=== PATIENT | male | born 1990 | race Caucasian/White ===

== ENCOUNTER 2022-10-19 11:11 | Inpatient (IN) | payer BC ==
[2022-10-19] MEDS ORDERED: methylPREDNISolone SOD SUCCI 125 MG/2 ML VIAL IV STA (11:41)
[2022-10-19] MEDS ORDERED: MORPHINE SULFATE 2 MG/ML SYRINGE IVP STA (11:41)
[2022-10-19] MEDS ORDERED: KETOROLAC 15 MG/ML 1 ML VIAL IVP STA (11:41)
[2022-10-19] MEDS ORDERED: DEXAMETHASONE SOD PHOSPHATE 10 MG/ML 1 ML VIAL IVP STA (11:44)
[2022-10-19 12:16] LABS: Basophils % (A) 0 %; Eosinophils # (A) 0.1 k/uL (0-0.7); Eosinophils % (A) 1 %; HCT 40.7 % (39.0-53.0); HGB 13.6 gm/dL (13.0-17.5); Lymphocytes # (A) 1.1 k/uL (1.0-4.8); Lymphocytes % (A) 12 %; MCH 28.8 pg (25.0-35.0); MCHC 33.3 g/dL (31.0-37.0); MCV 86.6 fL (80.0-100.0); Mean Platelet Volume 7.2; Monocytes # (A) 0.8 k/uL (0-1.0); Monocytes % (A) 9 %; Neutrophils # (A) 6.8 k/uL (1.3-7.7); Neutrophils % (A) 76 %; Platelet Count 252 k/uL (150-450); RDW 12.3 % (11.5-15.5); WBC 8.9 k/uL (3.8-10.6)
[2022-10-19 12:29] LABS: ALT 28 U/L (4-49); AST 24 U/L (17-59); African American GFR (CKD) >90 (>60 ml/min/1.73 sqM); Albumin 4.3 g/dL (3.5-5.0); Alkaline Phosphatase 95 U/L (38-126); Anion Gap 7 mmol/L; Blood Urea Nitrogen 10 mg/dL (9-20); C Reactive Protein 5.5 mg/dL (<1.0); Calcium 8.4 mg/dL (8.4-10.2); Carbon Dioxide 27 mmol/L (22-30); Chloride 102 mmol/L (98-107); Glucose 102 mg/dL (74-99); Non-African American GFR(CKD) >90 (>60 ml/min/1.73 sqM); Potassium 4.1 mmol/L (3.5-5.1); Sodium 136 mmol/L (137-145); Total Bilirubin 1.3 mg/dL (0.2-1.3); Total Protein 7.5 g/dL (6.3-8.2)
--- NOTE | 2022-10-19 12:56 | CT ---
EXAMINATION TYPE: CT soft tissue neck w con CT DLP: 444.1 mGycm, Automated exposure control for dose reduction was used. DATE OF EXAM: 10/19/2022 12:41 PM COMPARISON: None. CLINICAL INDICATION:Male, 32 years old with history of Possible peritonsillar abscess, neck pain swel ling TECHNIQUE: Standard enhanced CT of the neck. Axial sections with coronal and sagittal reformats were obtained. Contrast used:100 mL of Isovue 300 with IV Contrast, Oral contrast used: none. FINDINGS: Brain: Visualized portions are grossly unremarkable. Orbits: Unremarkable Sinuses: Grossly unremarkable. Spaces of the neck: Phlegmonous change 2 the palatine tonsils bilaterally which are enlarged and in i mpinging on the airway. The left palatine tonsil appears asymmetrically increased in size. Dentition streak artifact limits evaluation. There is a low-attenuation area measuring 17 x 13 x 7 mm suggestin g early abscess formation. Musculoskeletal: No acute osseous pathology. Lymph nodes: Multiple nonenlarged lymph nodes are seen along both anterior chains of the neck. Vascular structures: Visualized major arteries are patent without evidence of aneurysm. A variant rig ht subclavian artery transversing posterior to the esophagus. Thoracic Inlet/airway: Airway is patent. The lung apices are clear. Soft tissues/Thyroid: Thyroid and remainder of the soft tissues are unremarkable. Other: none. IMPRESSION Topping tonsil enlargement with asymmetrically increased left palatine tonsil with early abscess for mation on the left.
[2022-10-19] MEDS ORDERED: CLINDAMYCIN 900 MG in DEXTROSE 5% IN WATER 50 ML IVPB STA ×2 (13:28)
[2022-10-19] MEDS ORDERED: cefTRIAXone IN SWFI 1,000 MG/10 ML SYRINGE IVP STA (13:30)
[2022-10-19] MEDS ORDERED: LIDOCAINE 1% INJ 10MG/ML (30 ML VIAL-PF) SQ ONE (13:47)
--- NOTE | 2022-10-19 14:01 | ED ---
ENT HPI - General Chief complaint: Skin/Abscess/Foreign Body Stated complaint: abscess Time Seen by Provider: 10/19/22 11:29 Source: patient, RN notes reviewed Mode of arrival: ambulatory Limitations: no limitations - History of Present Illness Initial comments: This is a 32-year-old male who presents to the emergency department for a sore throat. He should states that this is been present for approximately 3 weeks. He was initially put on a 1 week course of amoxicillin and had no improvement in symptoms. He was then put on a course of Augmentin and prednisone. He had minor improvement in symptoms, however they then returned and seemed to worsen. He was at urgent care earlier today for reevaluation, and they're concerned about a peritonsillar abscess, and sent him to the emergency department for further evaluation. He is having a lot of pain with swallowing and trying to open his mouth. He is not having any shortness of breath, however he feels like his airway is smaller than it usually is. Denies any fevers. He has never had a problem like this before. Denies any fevers, chills, cough, dyspnea, chest pain, palpitations, abdominal pain, nausea, vomiting, diarrhea, back pain, or headaches. MD complaint: sore throat Onset/Timin -: week(s) - Related Data Home Medications Medication Instructions Recorded Confirmed No Known Home Medications 10/19/22 10/19/22 Allergies Allergy/AdvReac Type Severity Reaction Status Date / Time No Known Allergies Allergy Verified 10/19/22 15:19 Review of Systems ROS Statement: Those systems with pertinent positive or pertinent negative responses have been documented in the HPI. ROS Other: All systems not noted in ROS Statement are negative. Past Medical History Past Medical History: Asthma History of Any Multi-Drug Resistant Organisms: None Reported Past Surgical History: Adenoidectomy Past Psychological History: No Psychological Hx Reported Smoking Status: Current every day smoker Past Alcohol Use History: None Reported Past Drug Use History: None Reported General Exam Limitations: no limitations General appearance: alert, in no apparent distress Head exam: Present: atraumatic, normocephalic, normal inspection ENT exam: Present: other (Significant swelling of the bilateral palatine tonsils, worse on the left with minor uvula deviation to the right.) Respiratory exam: Present: normal lung sounds bilaterally. Absent: respiratory distress, wheezes, rales, rhonchi, stridor Cardiovascular Exam: Present: regular rate, normal rhythm, normal heart sounds. Absent: systolic murmur, diastolic murmur, rubs, gallop, clicks Neurological exam: Present: alert, oriented X3, CN II-XII intact Psychiatric exam: Present: normal affect, normal mood Skin exam: Present: warm, dry, intact, normal color. Absent: rash Course Vital Signs 10/19/22 10/19/22 11:15 15:05 Temperature 98.8 F Pulse Rate 102 H 87 Respiratory 20 18 Rate Blood Pressure 114/73 114/60 O2 Sat by Pulse 99 96 Oximetry Procedures - Incision & Drainage Consent Obtained: verbal consent Indication: Possible peritonsilar abscess Site: oral Needle Aspiration Performed?: Yes I&D Drainage Obtained: Blood Medical Decision Making - Medical Decision Making This is a 32-year-old male who presents to the emergency department for a sore throat. Was pt. sent in by a medical professional or institution? @ -[facility] Did you speak to anyone other than the patient for history? @ -No Did you review nursing and triage notes? @ -Yes, and I agree, it is accurate with regards to the patient's symptoms. Were old charts reviewed? @ -No Differential Diagnosis? @ -[place] tonsil enlargement: Streptococcus, mononucleosis, coxsackievirus, Covid, influenza, malignancy, Josh's angina, this is not meant to be an all-inclusive list. CT interpreted by me (1pt min.)? @ -Computed tomography scan of the soft tissue neck obtained. My interpretation reveals bilateral enlargement of the palatine tonsils with the left greater than the right. What testing was considered but not performed? (CT, X-rays, U/S, labs)? Why? @ -None What meds were considered but not given? Why? @ -None Did you discuss the management of the patient with other professionals? @ -I spoke with the provider at [facility] regarding the patient being sent here for further evaluation. I then spoke with Dr. Chang, ear nose and throat. He is agreeable to admission and recommends the following medications. Dexamethasone taper at 10 mg every 8 hours today, 5 mg every 8 hours tomorrow, and 2 mg every 12 hours the following day. The dexamethasone dosing had to be consolidated into every 6 hours today because the first dose was administered at noon. He also advised treatment with Zosyn and lactated Ringer's at [address] Porras accepts patient for admission to medicine. Did you reconcile home meds? @ -Yes Was critical care preformed (if so, how long)? @ -No Were there social determinants of health that impacted care today? How? (Homelessness, low income, unemployed, alcoholism, drug addiction, transportation, low edu. Level, literacy, decrease access to med. care, penitentiary, rehab)? @ -None Was there de-escalation of care discussed even if they declined? (Discuss DNR or withdrawal of care, Hospice)? @ -No What co-morbidities impacted this encounter? (DM, HTN, Smoking, COPD, CAD, Cancer, CVA, Hep., AIDS, mental health diagnosis, sleep apnea, morbid obesity)? @ -Asthma Was patient admitted / discharged? @ -Admitted. Lab work does not demonstrate leukocytosis or elevated lactic acid. He does have a notably elevated CRP. Computed tomography scan of the soft tissue neck obtained revealing phlegmonous changes to the bilateral palatine tonsils with suggestive early abscess formation on the left. Radiologist notes concern for impingement on the airway with the severe swellin g. Needle aspiration was attempted due to possible early abscess formation. Only blood was able to be drained, no purulence was noted. However, patient did feel like he had some relief in symptoms following the drainage. He was initially given 10 mg of Decadron and 900 mg of clindamycin. Discussed the case with Dr. Chang, ENT, who is agreeable to admission. He recommended dexamethasone, Zosyn, and lactated Ringer's as listed above. Patient did end up testing positive for Covid. He was negative for mononucleosis, influenza, RSV, and strep throat. Patient admitted to medicine with ENT on consult. Undiagnosed new problem with uncertain prognosis? @ -Enlarged palatine tonsils Drug Therapy requiring intensive monitoring for toxicity (Heparin, Nitro, Insulin, Cardizem)? @ -None Were any procedures done? @ -Needle aspiration for possible left peritonsillar abscess. Diagnosis/symptom? @ -Enlarged palatine tonsils Acute, or Chronic, or Acute on Chronic? @ -Acute Uncomplicated (without systemic symptoms) or Complicated (systemic symptoms)? @ -Complicated Side effects of treatment? @ -None Exacerbation, Progression, or Severe Exacerbation] @ -Progression Poses a threat to life or bodily function? @ -Yes Diagnosis/symptom? @ -COVID-19 Acute, or Chronic, or Acute on Chronic? @ -Acute Uncomplicated (without systemic symptoms) or Complicated (systemic symptoms)? @ -Complicated Side effects of treatment? @ -None Exacerbation, Progression, or Severe Exacerbation] @ -Progression Poses a threat to life or bodily function? @ -This depends on if the problems are related. This case was discussed in detail with the attending ED physician, Dr. Elias. Presentation, findings, and treatment plan discussed in detail as well. - Lab Data Result diagrams: 10/19/22 12:10 10/19/22 12:10 Lab Results 10/19/22 10/19/22 10/19/22 Range/Units 12:10 12:10 12:10 WBC 8.9 (3.8-10.6) k/uL RBC 4.70 (4.30-5.90) m/uL Hgb 13.6 (13.0-17.5) gm/dL Hct 40.7 (39.0-53.0) % MCV 86.6 (80.0-100.0) fL MCH 28.8 (25.0-35.0) pg MCHC 33.3 (31.0-37.0) g/dL RDW 12.3 (11.5-15.5) % Plt Count 252 (150-450) k/uL MPV 7.2 Neutrophils % 76 % Lymphocytes % 12 % Monocytes % 9 % Eosinophils % 1 % Basophils % 0 % Neutrophils # 6.8 (1.3-7.7) k/uL Lymphocytes # 1.1 (1.0-4.8) k/uL Monocytes # 0.8 (0-1.0) k/uL Eosinophils # 0.1 (0-0.7) k/uL Basophils # 0.0 (0-0.2) k/uL Sodium 136 L (137-145) mmol/L Potassium 4.1 (3.5-5.1) mmol/L Chloride 102 (98-107) mmol/L Carbon Dioxide 27 (22-30) mmol/L Anion Gap 7 mmol/L BUN 10 (9-20) mg/dL Creatinine 0.93 (0.66-1.25) mg/dL Est GFR (CKD-EPI)AfAm >90 (>60 ml/min/1.73 sqM) Est GFR (CKD-EPI)NonAf >90 (>60 ml/min/1.73 sqM) Glucose 102 H (74-99) mg/dL Plasma Lactic Acid Zen (0.7-2.0) mmol/L Calcium 8.4 (8.4-10.2) mg/dL Total Bilirubin 1.3 (0.2-1.3) mg/dL AST 24 (17-59) U/L ALT 28 (4-49) U/L Alkaline Phosphatase 95 (38-126) U/L C-Reactive Protein 5.5 H (<1.0) mg/dL Total Protein 7.5 (6.3-8.2) g/dL Albumin 4.3 (3.5-5.0) g/dL Heterophile Antibody Negative (Negative) Influenza Type A (PCR) (Not Detectd) Influenza Type B (PCR) (Not Detectd) RSV (PCR) (Not Detectd) SARS-CoV-2 (PCR) (Not Detectd) Group A Strep (PCR) (Not Detectd) 10/19/22 10/19/22 10/19/22 Range/Units 12:14 12:30 12:30 WBC (3.8-10.6) k/uL RBC (4.30-5.90) m/uL Hgb (13.0-17.5) gm/dL Hct (39.0-53.0) % MCV (80.0-100.0) fL MCH (25.0-35.0) pg MCHC (31.0-37.0) g/dL RDW (11.5-15.5) % Plt Count (150-450) k/uL MPV Neutrophils % % Lymphocytes % % Monocytes % % Eosinophils % % Basophils % % Neutrophils # (1.3-7.7) k/uL Lymphocytes # (1.0-4.8) k/uL Monocytes # (0-1.0) k/uL Eosinophils # (0-0.7) k/uL Basophils # (0-0.2) k/uL Sodium (137-145) mmol/L Potassium (3.5-5.1) mmol/L Chloride (98-107) mmol/L Carbon Dioxide (22-30) mmol/L Anion Gap mmol/L BUN (9-20) mg/dL Creatinine (0.66-1.25) mg/dL Est GFR (CKD-EPI)AfAm (>60 ml/min/1.73 sqM) Est GFR (CKD-EPI)NonAf (>60 ml/min/1.73 sqM) Glucose (74-99) mg/dL Plasma Lactic Acid Zen 0.9 (0.7-2.0) mmol/L Calcium (8.4-10.2) mg/dL Total Bilirubin (0.2-1.3) mg/dL AST (17-59) U/L ALT (4-49) U/L Alkaline Phosphatase (38-126) U/L C-Reactive Protein (<1.0) mg/dL Total Protein (6.3-8.2) g/dL Albumin (3.5-5.0) g/dL Heterophile Antibody (Negative) Influenza Type A (PCR) Not Detected (Not Detectd) Influenza Type B (PCR) Not Detected (Not Detectd) RSV (PCR) Not Detected (Not Detectd) SARS-CoV-2 (PCR) Detected A (Not Detectd) Group A Strep (PCR) NOT DETECTED (Not Detectd) - Radiology Data Radiology results: report reviewed, image reviewed Disposition Clinical Impression: [place] tonsil hypertrophy, Failure of outpatient treatment, COVID-19 Disposition: ADMITTED IP TO THIS HOSP
[2022-10-19] MEDS ORDERED: BENZOCAINE SPRAY 1 CAN MUCOUS MEM ONE (14:24)
[2022-10-19] MEDS ORDERED: HYDROmorphone 1 MG/ML 1 ML SYRINGE IVP STA (14:27)
[2022-10-19] MEDS ORDERED: ORPHENADRINE 30 MG/ML 2 ML VIAL IVP STA (14:47)
[2022-10-19] MEDS ORDERED: LACTATED RINGERS 1,000 ML IV ONE (16:08)
[2022-10-19] MEDS ORDERED: KETOROLAC 15 MG/ML 1 ML VIAL IVP PRN (16:15)
[2022-10-19] MEDS ORDERED: NALOXONE 0.4 MG/ML 1 ML VIAL IV PRN (16:15)
[2022-10-19] MEDS ORDERED: HYDROmorphone 1 MG/ML 1 ML SYRINGE IVP PRN (16:15)
[2022-10-19] MEDS ORDERED: HYDROmorphone 0.5 MG/0.5 ML SYRINGE IVP PRN (16:15)
[2022-10-19] MEDS ORDERED: IBUPROFEN 400 MG TAB PO PRN (16:15)
[2022-10-19] MEDS ORDERED: ACETAMINOPHEN TAB 325 MG TAB PO PRN (16:15)
[2022-10-19] MEDS ORDERED: ONDANSETRON 4 MG/2 ML VIAL IVP PRN (16:15)
--- NOTE | 2022-10-19 17:00 | P.HPIM ---
History of Present Illness H&P Date: 10/19/22 Patient is a 32-year-old male with no significant past medical history presenting with sore throat. He claims that he has been dealing with this for approximately 3 weeks. He was put on 1 week course of amoxicillin, with no improvement, and then had a course of Augmentin and prednisone with minor improvement in symptoms. Now his symptoms seems to be worsening. Today he went to an urgent care, and was sent to the emergency for concern of peritonsillar abscess. He continues to have pain with swallowing and difficulty opening his mouth. He denies any chest pain, shortness of breath, abdominal pain, nausea, vomiting, diarrhea, constipation, or urinary complaints. He denies any recent sick contacts. He traveled to [place] 2 weeks ago. In the ED, he was tachycardic initially at 100, rate 20, rest of the vital signs were otherwise within normal limits. Laboratory workup showed a CRP of 5.5, normal WBC. He is COVID-[address] neck showed palatine tonsil enlargemen t with asymmetrically increased left palatine tonsil with early abscess formation on the left. He was given Steroids and IV antibiotics in the ED. ENT consulted. He had bedside I&D. Patient seen and examined at bedside. Pertinent positives and negatives as discussed in HPI, a complete review of systems was performed and all other systems are negative. Vital signs reviewed General: nontoxic, no distress, appears at stated age Derm: warm, dry Head: atraumatic, normocephalic, symmetric Eyes: EOMI, no lid lag, anicteric sclera, pupils equal round reactive to light ENT: Nose and ears atraumatic Neck: No thyromegaly, supple Mouth: no lip lesion, mucus membranes moist, significant left-sided tonsillar edema, white exudate Cardiovascular: S1S2 reg, no murmur, no edema Lungs: clear to auscultation bilateral, no rhonchi, no rales, no wheeze, no accessory muscle use Abdominal: soft, nontender to palpation, no guarding, no appreciable organomegaly Ext: no gross muscle atrophy, muscle strength muscle strength 5 out of 5 in all 4 extremities, no contractures Neuro: CN II-XII grossly intact Psych: Alert, oriented, appropriate affect Assessment/Plan: Sepsis 2/2 Tonsillar abscess Odynophagia - Status post bedside I&D - Steroids taper - IV zosyn - cultures pending - heterophile antibody negative, group a strep negative - ENT consult - pain control Asymptomatic COVID 19 infection - on Room air - continue to follow The patient is admitted with an anticipated greater than 2 midnight stay for evaluation of tosillar abscess. Surrogate decision-maker: mother CODE STATUS:full code DVT prophylaxis: heparin sq Anticipated discharge date: pending clincal course Anticipated discharge place: pending clinical course A total of 58 minutes was spent on the care of this complex patient more than 50% of the time was spent in counseling and care coordination. Past Medical History Past Medical History: Asthma History of Any Multi-Drug Resistant Organisms: None Reported Past Surgical History: Adenoidectomy Past Psychological History: No Psychological Hx Reported Smoking Status: Current every day smoker Past Alcohol Use History: None Reported Past Drug Use History: None Reported Medications and Allergies Home Medications Medication Instructions Recorded Confirmed Type No Known Home Medications 10/19/22 10/19/22 History Allergies Allergy/AdvReac Type Severity Reaction Status Date / Time No Known Allergies Allergy Verified 10/19/22 15:19 Physical Exam Vitals: Vital Signs Temp Pulse Resp BP Pulse Ox 10/19/22 16:58 97.8 F 72 18 123/72 97 10/19/22 15:05 87 18 114/60 96 10/19/22 11:15 98.8 F 102 H 20 114/73 99 Intake and Output 10/19/22 10/19/22 10/19/22 06:59 14:59 22:59 Other: Weight 111.13 kg Results CBC & Chem 7: 10/19/22 12:10 10/19/22 12:10 Labs: Abnormal Lab Results - Last 24 Hours (Table) 10/19/22 10/19/22 Range/Units 12:10 12:30 Sodium 136 L (137-145) mmol/L Glucose 102 H (74-99) mg/dL C-Reactive Protein 5.5 H (<1.0) mg/dL SARS-CoV-2 (PCR) Detected A (Not Detectd)
[2022-10-19] MEDS: PIPERACILLIN-TAZOBACTAM 3.375 GM in SODIUM CHLORIDE 0.9% 100 ML IVPB SCH (17:55)
[2022-10-19] MEDS: DEXAMETHASONE SOD PHOSPHATE 4 MG/ML 1 ML VIAL IVP SCH (17:56)
[2022-10-20] MEDS: PIPERACILLIN-TAZOBACTAM 3.375 GM in SODIUM CHLORIDE 0.9% 100 ML IVPB SCH ×2 (00:34→08:38)
[2022-10-20] MEDS: DEXAMETHASONE SOD PHOSPHATE 4 MG/ML 1 ML VIAL IVP SCH ×3 (00:35→08:41)
--- NOTE | 2022-10-20 11:42 | P.PN ---
Subjective Progress Note Date: 10/20/22 Hospital Course: 32-year-old male with no significant past medical history presenting with sore throat. In the ED, he was tachycardic initially at 100, rate 20, rest of the vital signs were otherwise within normal limits. Laboratory workup showed a CRP of 5.5, normal WBC. He is COVID-[address] neck showed palatine tonsil enlargement with asymmetrically increased left palatine tonsil with early abscess formation on the left. He was given Steroids and IV antibiotics in the ED. ENT consulted. He had bedside I&D. Currently remains on IV steroids as well as IV Zosyn. Subjective: Patient seen and examined at bedside. No acute events overnight. He claims that his voice is coming back, he is able to swallow without much pain. He continues to have some cough, but denies any shortness of breath. Denies any chest pain, abdominal pain, nausea, vomiting, diarrhea, constipation, or urinary complaints. Pertinent positives and negatives as discussed above, a complete review of systems was performed and all other systems are negative. Vitals Signs Reviewed. General: nontoxic, no distress, appears at stated age Derm: warm, dry Head: atraumatic, normocephalic, symmetric Eyes: EOMI, no lid lag, anicteric sclera, pupils equal round reactive to light ENT: Nose and ears atraumatic Neck: No thyromegaly, supple Mouth: no lip lesion, mucus membranes moist, reduced left-sided tonsillar edema, minimal white exudate Cardiovascular: S1S2 reg, no murmur, no edema Lungs: clear to auscultation bilateral, no rhonchi, no rales, no wheeze, no accessory muscle use Abdominal: soft, nontender to palpation, no guarding, no appreciable organomegaly Ext: no gross muscle atrophy, muscle strength muscle strength 5 out of 5 in all 4 extremities, no contractures Neuro: CN II-XII grossly intact Psych: Alert, oriented, appropriate affect Assessment and Plan: Sepsis 2/2 Tonsillar abscess Odynophagia - Status post bedside I&D - Steroids taper - IV zosyn - cultures pending - heterophile antibody negative, group a strep negative - ENT consult - pain control Asymptomatic COVID 19 infection - on Room air - continue to follow DVT ppx: Patient ambulatory Code status: Full code Anticipated discharge place: Home Anticipated discharge time: Tomorrow Objective - Vital Signs Vital signs: Vital Signs Temp 97.6 F 10/20/22 07:05 Pulse 71 10/20/22 08:00 Resp 16 10/20/22 08:00 BP 121/71 10/20/22 07:05 Pulse Ox 95 10/20/22 07:05 FiO2 Intake & Output 10/19/22 10/20/22 10/20/22 18:59 06:59 18:59 Output Total 0 Balance 0 Weight 111.13 kg Output: Emesis 0 Other: # Voids 2 - Labs CBC & Chem 7: 10/19/22 12:10 10/19/22 12:10 Labs: Abnormal Lab Results - Last 24 Hours (Table) 10/19/22 10/19/22 Range/Units 12:10 12:30 Sodium 136 L (137-145) mmol/L Glucose 102 H (74-99) mg/dL C-Reactive Protein 5.5 H (<1.0) mg/dL SARS-CoV-2 (PCR) Detected A (Not Detectd)
--- NOTE | 2022-10-20 15:31 | P.DS ---
Providers Date of admission: 10/19/22 16:04 Expected date of discharge: 10/20/22 Attending physician: Pete Porras MD Consults: 10/19/22 16:15 Consult Physician Urgent Consulting Provider: Guy Chang Consult Reason/Comments: [place] tonsil enlargement Do you want consulting provider notified?: Already Contacted Primary care physician: Stated None Hospital Course: Discharge Diagnosis: Sepsis Peritonsillar abscess Odynophagia Asymptomatic COVID-19 infection Hospital Course: 32-year-old male with no significant past medical history presenting with sore throat. In the ED, he was tachycardic initially at 100, rate 20, rest of the vital signs were otherwise within normal limits. Laboratory workup showed a CRP of 5.5, normal WBC. He is COVID-[address] neck showed palatine tonsil enlargement with asymmetrically increased left palatine tonsil with early abscess formation on the left. He was given Steroids and IV antibiotics in the ED. ENT consulted. He had bedside I&D. Patient being discharged on oral antibiotics and steroids. Patient received paper scripts off ENT has the pharmacy on Sundays is closed. Patient seen and examined at bedside. Vital signs reviewed and stable. General: nontoxic, no distress, appears at stated age Derm: warm, dry Head: atraumatic, normocephalic, symmetric Eyes: EOMI, no lid lag, anicteric sclera, pupils equal round reactive to light ENT: Nose and ears atraumatic Neck: No thyromegaly, supple Mouth: no lip lesion, mucus membranes moist, reduced left-sided tonsillar edema, minimal white exudate Cardiovascular: S1S2 reg, no murmur, no edema Lungs: clear to auscultation bilateral, no rhonchi, no rales, no wheeze, no accessory muscle use Abdominal: soft, nontender to palpation, no guarding, no appreciable organomegaly Ext: no gross muscle atrophy, muscle strength muscle strength 5 out of 5 in all 4 extremities, no contractures Neuro: CN II-XII grossly intact Psych: Alert, oriented, appropriate affect A total of 32 minutes of time were spent preparing this complex discharge summary. Patient was discharged on 10/20/22 at 15:28. Patient Condition at Discharge: Stable Plan - Discharge Summary Discharge Rx Participant: No New Discharge Prescriptions: No Action No Known Home Medications Discharge Medication List No Known Home Medications 10/19/22 [History] Follow up Appointment(s)/Referral(s): None,Stated [Primary Care Provider] - 1-2 days Guy Chang MD [STAFF PHYSICIAN] - 1 Week Patient Instructions/Handouts: Peritonsillar Abscess (GEN), COVID-19 (Coronavirus Disease 2019) (DC) Activity/Diet/Wound Care/Special Instructions: Please see ENT as an outpatient. Discharge Disposition: HOME SELF-CARE
[2022-10-20 15:47] VITALS: BP 130/74; PULSE 80; RESP 17; TEMP 98
--- NOTE | 2022-10-20 17:53 | CONS ---
CONSULTATION REASON FOR CONSULTATION: Left peritonsillar abscess. HISTORY OF PRESENT ILLNESS: This patient is a very pleasant 32-year-old male who presented to [facility] Emergency Room Department complaining of a severe sore throat and difficulty swallowing. The patient states that approximately 3 to 3-1/2 weeks prior to coming to the emergency room, he developed a sore throat and a fullness in his throat. After approximately 3 days of his symptoms, the patient was seen in a local urgent care center. He was placed on amoxicillin 500 mg p.o. t.i.d. and discharged. The patient states that he took most of the medication and for a while he seemed to get better. However, within 4 to 5 days after being on the medication, the pain and swelling returned. He admits to having had referred pain especially to his left ear. In addition to this, he noticed that he was having more difficulty swallowing, especially solid food stuff. He returned to the same Urgent Care Center and at this time, he was placed on Augmentin 500 mg/125 p.o. b.i.d. for 10 days. Once again, the patient took the medication and for 3 to 4 days he felt better. However, his symptoms of pain and difficulty swallowing returned again and he was seen by his family physician who referred him to a local ENT physician. That physician felt that he was not on the appropriate dose of Augmentin and increased the dose from 500 mg to 875 mg p.o. b.i.d. In addition, he was placed on a Medrol Dosepak. Once again, the patient took the medication and felt he was getting better, but after about 5 days, he felt the symptoms were getting worse and therefore he presents at the emergency room department. At the time that he was seen in emergency room department, blood work revealed that he did not have evidence of a leukocytosis and he was afebrile. I was contacted at home by the emergency room department physician who examined this patient. He stated that the patient had severe swelling of both tonsils and that a CT scan had been performed. CT scan showed evidence of an early left peritonsillar abscess. The physician states that he makes several tries attempting to drain this area with a syringe and needle, however, he only obtained a small amount of purulent material and some bloody secretions. After much discussion with the patient, I advised the physician that it would be best to admit the patient for intravenous antibiotics and intravenous steroids. I recommended he be placed on the maximum dose of Zosyn and on a specific regimen of dexamethasone, which I described.. In addition, he was placed on IV intravenous fluids, Ringer's lactate at 125 cc an hour. He was given dexamethasone in the emergency room as well as Rocephin. The patient states that by the time he was placed on the nursing floor and after a few hours, the throat pain started to subside as well as the swelling. Today, he states that his throat feels 90% to 95% better. He is no longer having significant throat pain and is not having any difficulty swallowing. He states that he does have a history of having enlarged tonsils, but does not have any previous history of recurrent tonsillitis or strep throat. The patient tested positive for COVID-19 on his admission. PAST MEDICAL HISTORY: Reveals the patient has no known allergies to medications. MEDICATIONS: He is not currently on any medications. REVIEW OF SYSTEMS: Noncontributory. PHYSICAL EXAMINATION: GENERAL: This patient is a 32-year-old male, who is alert, cooperative, and well- oriented to time and place. He is in no acute distress at this time. HEENT: The patient is normocephalic. Tympanic membranes are normal. Middle ear spaces are free of any fluid or infection. Pupils are equal, round, and reactive to light and accommodation. Extraocular movements are within normal limits. Intranasal examination reveals [id number] septal deviation with bilateral compensatory hypertrophy of the inferior turbinates and a moderate amount of clear mucus on the mucous membranes and draining down the posterior pharynx. Examination of the oropharynx reveals 4+ tonsillar hypertrophy with very prominent tonsillar crypts. Puncture sites are noted in the left peritonsillar area, where the multiple attempts of abscess drainage with a syringe and needle were attempted. Palpation of this area with the tongue blade does not express any purulent material at this time. Palpation of the neck is negative for any neck adenopathy or lymphadenopathy. Cranial nerves 2 through 12 and remainder of the head and neck exam are unremarkable. CHEST AND CARDIOVASCULAR: Both lung ceja are clear to percussion and auscultation. The patient is in regular sinus rhythm. S1 and S2 are present without any murmurs. Peripheral pulses are bilaterally symmetrical. ABDOMEN: No evidence of any masses, megaly, or tenderness. The abdomen is soft. The remainder of physical exam is unremarkable. ASSESSMENT: 1. Bilateral 4+ tonsillar hypertrophy. 2. Early left peritonsillar abscess. 3. Acute tonsillitis. 4. Dysphagia. PLAN: Since this patient has remarkably improved since his admission, it will probably be okay for the patient to be discharged today on oral antibiotics. I feel he has received enough intravenous antibiotics with the Zosyn and the intravenous dexamethasone. Therefore, I will leave prescriptions for this patient for his original antibiotic, Augmentin 875 mg/125, to be taken b.i.d. for 5 days. The patient states that he has 5 days of the 875 mg Augmentin at home. I advised him to finish that before starting the new prescription. This will give him a total of 10 days of Augmentin 875. In addition, I have written out a prescription for a dexamethasone pack, which he should begin taking tomorrow and he will be on this medication for a period of approximately 5 days. I requested that he call my office on Friday and schedule an appointment to see me for followup in approximately one week. Normally in cases like this where the patient does not have any previous history of recurrent tonsillitis or chronic tonsillitis or tonsillar abscess, it is not necessarily recommended that the patient has to have his tonsils removed. The patient stated that he always had large tonsils since he was a teenager. Once again, it is okay for this patient to be discharged home today and I will follow up with him in my office in approximately 1 week. I want to take this opportunity to thank you for allowing me to assist in the care of your patient. If I can be of any further assistance, please feel free to call my office. PARRISH / GARIMA: [id number] / FABIENNE
[2022-10-21] MEDS ORDERED: DEXAMETHASONE SOD PHOSPHATE 4 MG/ML 1 ML VIAL IVP SCH ×2 (06:00)
== END 2022-10-20 16:42 | disposition home or self-care (01) | DRG 853 ==
LOC: EC 11:11 → 4SSUR 16:04
PROVIDERS: ADMIT Student in an Organized Health Care Education/Training Program; ATTEND Student in an Organized Health Care Education/Training Program
PROC: 0C9P3ZX Drainage of Tonsils, Percutaneous Approach, Diagnostic (ICD-10-PCS; principal; 2022-10-19)
DX: A41.9 Sepsis, unspecified organism (principal); U07.1 COVID-19; J36 Peritonsillar abscess; F17.200 Nicotine dependence, unspecified, uncomplicated; J45.909 Unspecified asthma, uncomplicated; Z28.310 Unvaccinated for COVID-19
CPT/HCPCS: 36415; 42700; 70491; 80053; 83605; 85025; 86140; 86308; 87040; 87636; 87651; 96361; 96365; 96375; 99285